=== PATIENT | male | born 1990 | race Caucasian/White ===

== ENCOUNTER 2017-04-15 18:22 | Emergency (ER) | payer SELFPAY ==
[~2017-04-15] VITALS: Ht 172.7 cm; Wt 90.0 kg
[2017-04-15 18:25] VITALS: BP 143/69; PULSE 88; RESP 18; TEMP 98.1; O2SAT 98
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
[2017-04-15] MEDS ORDERED: TETANUS/DIPHTHERIA TOXOID ADULT 0.5 ML VIAL IM ONE (18:45)
[2017-04-15] MEDS ORDERED: LIDOCAINE 1%/EPINEPHrine 1:100,000 SOLN 20 ML VIAL INFIL ONE (18:45)
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
== END 2017-04-15 20:15 | disposition left against medical advice (07) ==
LOC: NEPE 18:22
DX: S01.01XA Laceration without foreign body of scalp, initial encounter (principal); V19.9XXA Pedal cyclist (driver) (passenger) injured in unspecified traffic accident, initial encounter; Y93.55 Activity, bike riding; Z23 Encounter for immunization
CPT/HCPCS: 70450; 70486; 72125; 90471; 90714

== ENCOUNTER 2017-06-19 18:23 | Emergency (ER) | payer OTHER ==
[~2017-06-19] VITALS: Ht 172.7 cm; Wt 90.0 kg
[2017-06-19 18:48] VITALS: BP 163/93; PULSE 93; RESP 18; TEMP 99.9; O2SAT 98
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
[2017-06-19 19:32] LABS: AUTOMATED NEUTROPHIL # 2.8 TH/MM3 (1.8-7.7); BASOPHIL % 0.8 % (0.0-2.0); EOSINOPHIL # 0.1 TH/MM3 (0-0.4); EOSINOPHIL % 1.7 % (0.0-4.0); HEMATOCRIT 44.3 % (39.0-51.0); HEMO FLAGS DIFF FINAL; LYMPH % 43.4 % (9.0-44.0); LYMPHOCYTE # 2.6 TH/MM3 (1.0-4.8); MEAN CELL VOLUME 92.2 FL (80.0-100.0); MEAN CORPUSCULAR HEMOGLOBIN 33.1 PG (27.0-34.0); MEAN CORPUSCULAR HGB CONC 35.9 % (32.0-36.0); MONO % 7.2 % (0.0-8.0); NEUT % 46.9 % (16.0-70.0); PLATELET COUNT 246 TH/MM3 (150-450); RED CELL DISTRIBUTION WIDTH 12.6 % (11.6-17.2); WHITE BLOOD COUNT 5.9 TH/MM3 (4.0-11.0)
[2017-06-19 19:41] LABS: AMPHETAMINE, URINE NEG (NEG); BARBITURATES, URINE NEG (NEG); COCAINE, URINE NEG (NEG)
[2017-06-19 19:56] LABS: ANION GAP 9 MEQ/L (5-15); AST (GOT) 28 U/L (15-37); BICARBONATE 25.1 MEQ/L (21.0-32.0); BLOOD UREA NITROGEN 10 MG/DL (7-18); CHLORIDE 107 MEQ/L (98-107); GLOMERULAR FILTRATION RATE 74 ML/MIN (>89); POTASSIUM 3.6 MEQ/L (3.5-5.1); SODIUM (NA) 141 MEQ/L (136-145)
[2017-06-19 20:00] LABS: ALKALINE PHOSPHATASE 57 U/L (45-117); ALT (GPT) 31 U/L (12-78); TOTAL BILIRUBIN ADULT 0.4 MG/DL (0.2-1.0)
[2017-06-19 20:15] LABS: ACETAMINOPHEN LESS THAN 2.0 MCG/ML (10.0-30.0)
[2017-06-19] MEDS ORDERED: LORazepam 2 MG TAB PO PRN (21:30)
[2017-06-19] MEDS ORDERED: ONDANSETRON ODT 4 MG TAB PO PRN (21:30)
[2017-06-19] MEDS ORDERED: FLUMAZENIL 0.5 MG/5 ML VIAL IV PUSH PRN (21:30)
[2017-06-19] MEDS ORDERED: LORazepam 1 MG TAB PO PRN (21:30)
[2017-06-19] MEDS ORDERED: LORazepam 2 MG/ML VIAL IV PUSH PRN ×4 (21:30)
[2017-06-19 22:40] VITALS: BP 148/85; PULSE 69; RESP 18
== END 2017-06-20 ==
LOC: NEPD 18:23 → NEPJ 06-20
DX: R45.851 Suicidal ideations (principal); F41.9 Anxiety disorder, unspecified; F32.9 Major depressive disorder, single episode, unspecified; Z72.0 Tobacco use; Z88.0 Allergy status to penicillin
CPT/HCPCS: 80053; 80307; 85025; 96374; 99284; J2060

== ENCOUNTER 2018-04-21 16:08 | Inpatient (IN) | payer SELFPAY ==
[~2018-04-21] VITALS: Ht 167.6 cm; Wt 92.4 kg
[2018-04-21 16:23] VITALS: BP 140/82; PULSE 70; RESP 16; O2SAT 99
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
[2018-04-21] MEDS ORDERED: ACETAMINOPHEN/HYDROcodone 325 MG/5 MG TAB PO ONE (16:45)
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
[2018-04-21] MEDS ORDERED: SODIUM CHLOR 0.9% 1000 ML INJ 1,000 ML IV SCH (17:20)
[2018-04-21] MEDS ORDERED: SODIUM CHLORIDE 0.9% FLUSH 10 ML FLUSH IV FLUSH PRN ×2 (17:30→18:45)
--- NOTE | 2018-04-21 18:39 | RADRPT ---
EXAM DATE: 04/21/2018 6:14 PM EDT AGE/SEX: 28 years / Male INDICATIONS: Evaluate for free air. CLINICAL DATA: This is the patient's initial encounter. Patient reports that signs and symptoms have been present for 1 day and indicates a pain score of 0/10. MEDICAL/SURGICAL HISTORY: None. None. COMPARISON: No prior [facility] exams available for comparison. FINDINGS: A single AP upright portable view of the chest demonstrates the lungs to be symmetrically aerated wit hout evidence of mass, infiltrate or effusion. No evidence of pneumothorax. The cardiomediastinal co ntours are unremarkable. Osseous structures are intact. No evidence of free intraperitoneal gas. CONCLUSION: Lungs are clear. No evidence of free air. Electronically signed by: Guero Natarajan MD 04/21/2018 6:38 PM EDT
[2018-04-21] MEDS ORDERED: ACETAMINOPHEN 325 MG TAB PO PRN (18:45)
[2018-04-21] MEDS ORDERED: BISACODYL 10 MG SUPP RECTAL PRN (18:45)
[2018-04-21] MEDS ORDERED: METOCLOPRAMIDE HCL 10 MG/2 ML VIAL IV PUSH PRN (18:45)
[2018-04-21] MEDS ORDERED: SENNOSIDES 8.6 MG TAB PO PRN (18:45)
[2018-04-21] MEDS ORDERED: NALOXONE HCL 0.4 MG/ML AMP IV PUSH PRN (18:45)
[2018-04-21] MEDS ORDERED: MAGNESIUM HYDROXIDE SUSP 30 ML CUP PO PRN (18:45)
[2018-04-21] MEDS ORDERED: ACETAMINOPHEN/HYDROcodone 325 MG/10 MG TAB PO PRN (18:45)
[2018-04-21] MEDS ORDERED: LACTULOSE SYRUP 20 GM/30 ML CUP PO PRN (18:45)
[2018-04-21 18:58] LABS: AUTOMATED NEUTROPHIL # 7.1 TH/MM3 (1.8-7.7); BASOPHIL # 0.1 TH/MM3 (0-0.2); BASOPHIL % 0.7 % (0.0-2.0); EOSINOPHIL # 0.1 TH/MM3 (0-0.4); EOSINOPHIL % 0.8 % (0.0-4.0); HEMATOCRIT 46.1 % (39.0-51.0); LYMPH % 9.7 % (9.0-44.0); LYMPHOCYTE # 0.9 TH/MM3 (1.0-4.8); MEAN CELL VOLUME 95.8 FL (80.0-100.0); MEAN CORPUSCULAR HEMOGLOBIN 31.1 PG (27.0-34.0); MEAN CORPUSCULAR HGB CONC 32.5 % (32.0-36.0); MEAN PLATELET VOLUME 7.5 FL (7.0-11.0); MONO % 9.3 % (0.0-8.0); MONOCYTE # 0.8 TH/MM3 (0-0.9); NEUT % 79.5 % (16.0-70.0); PLATELET COUNT 398 TH/MM3 (150-450); RED BLOOD COUNT 4.81 MIL/MM3 (4.50-5.90); RED CELL DISTRIBUTION WIDTH 14.9 % (11.6-17.2)
[2018-04-21 19:20] LABS: BILIRUBIN, URINE NEG (NEG); BLOOD, URINE NEG (NEG); GLUCOSE,URINE NEG (NEG); HYALINE CAST, URINE 2 /lpf (RARE); KETONE, URINE NEG (NEG); MUCUS URINE FEW /lpf (OCC); NITRITE,URINE NEG (NEG); URINE COLOR YELLOW (YELLW/STRAW); URINE LEUKOCYTE ESTERASE NEG (NEG)
[2018-04-21 19:26] LABS: ALT (GPT) 58 U/L (12-78)
[2018-04-21 19:29] LABS: ALKALINE PHOSPHATASE 46 U/L (45-117); TOTAL BILIRUBIN ADULT 0.3 MG/DL (0.2-1.0); TOTAL PROTEIN 7.1 GM/DL (6.4-8.2)
[2018-04-21 19:30] VITALS: BP 140/82; PULSE 82; RESP 16; O2SAT 98
[2018-04-21 19:33] LABS: ALBUMIN 3.9 GM/DL (3.4-5.0); AST (GOT) 46 U/L (15-37); BICARBONATE 29.8 MEQ/L (21.0-32.0); BLOOD UREA NITROGEN 13 MG/DL (7-18); CALCIUM 9.2 MG/DL (8.5-10.1); CHLORIDE 104 MEQ/L (98-107); CREATININE 1.34 MG/DL (0.60-1.30); GLOMERULAR FILTRATION RATE 63 ML/MIN (>89); GLUCOSE,RANDOM 130 MG/DL (74-106); SODIUM (NA) 140 MEQ/L (136-145)
[2018-04-21 19:50] VITALS: BP 141/85; PULSE 112; RESP 18; TEMP 98.4; O2SAT 94
[2018-04-21] MEDS: SODIUM CHLOR 0.9% 1000 ML INJ 1,000 ML IV SCH ×2 (20:09→21:27)
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
[2018-04-21] MEDS: SODIUM CHLORIDE 0.9% FLUSH 10 ML FLUSH IV FLUSH SCH (21:00)
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
[2018-04-21] MEDS: MORPHINE SULFATE 4 MG/ML INJ IV PUSH PRN (21:25)
[2018-04-21] MEDS: DOCUSATE SODIUM 50 MG/SENNA 8.6 MG TAB PO SCH (21:25)
[2018-04-22] VITALS: BP 133/73; PULSE 85; RESP 20; TEMP 99; O2SAT 98
[2018-04-22] MEDS: MORPHINE SULFATE 4 MG/ML INJ IV PUSH PRN ×4 (00:19→11:55)
[2018-04-22] MEDS ORDERED: METOPROLOL TARTRATE 25 MG TAB PO PRN (03:45)
[2018-04-22] MEDS ORDERED: CHLORHEXIDINE GLUCONATE 2 % 1 PACK (2 CLOTHS) TOPICAL PRN (03:45)
[2018-04-22] MEDS ORDERED: POVIDONE IODINE 5% (ANTISEPSIS KIT) 4 APPLICATIONS EACH NARE PRN (03:45)
[2018-04-22] MEDS ORDERED: SODIUM CHLORID 0.9% 500 ML IV PRN (03:45)
[2018-04-22] MEDS ORDERED: LACTATED RINGER'S 1000 ML IV PRN (03:45)
[2018-04-22 04:05] VITALS: BP 153/64; PULSE 62; RESP 18; TEMP 98.4; O2SAT 97
[2018-04-22 07:15] LABS: AUTOMATED NEUTROPHIL # 7.3 TH/MM3 (1.8-7.7); BASOPHIL % 0.5 % (0.0-2.0); EOSINOPHIL # 0.1 TH/MM3 (0-0.4); EOSINOPHIL % 0.8 % (0.0-4.0); HEMATOCRIT 45.5 % (39.0-51.0); LYMPH % 11.9 % (9.0-44.0); LYMPHOCYTE # 1.1 TH/MM3 (1.0-4.8); MEAN CORPUSCULAR HEMOGLOBIN 31.6 PG (27.0-34.0); MEAN CORPUSCULAR HGB CONC 32.9 % (32.0-36.0); MEAN PLATELET VOLUME 7.7 FL (7.0-11.0); NEUT % 76.8 % (16.0-70.0); PLATELET COUNT 371 TH/MM3 (150-450); RED BLOOD COUNT 4.74 MIL/MM3 (4.50-5.90); RED CELL DISTRIBUTION WIDTH 14.7 % (11.6-17.2); WHITE BLOOD COUNT 9.5 TH/MM3 (4.0-11.0)
[2018-04-22 07:40] LABS: BICARBONATE 26.5 MEQ/L (21.0-32.0); CALCIUM 8.5 MG/DL (8.5-10.1); CREATININE 1.1 MG/DL (0.60-1.30)
[2018-04-22] MEDS: SODIUM CHLOR 0.9% 1000 ML INJ 1,000 ML IV SCH (08:06)
[2018-04-22] MEDS: SODIUM CHLORIDE 0.9% FLUSH 10 ML FLUSH IV FLUSH SCH ×2 (08:13→21:00)
[2018-04-22] MEDS: DOCUSATE SODIUM 50 MG/SENNA 8.6 MG TAB PO SCH ×2 (08:13→19:42)
[2018-04-22 12:00] VITALS: BP 122/65; PULSE 67; RESP 18; TEMP 98.6; O2SAT 99
[2018-04-22] MEDS ORDERED: GENTAMICIN SULFATE 80 MG/2 ML VIAL ONE (14:03)
[2018-04-22] MEDS ORDERED: ceFAZolin INJ 1,000 MG VIAL ONE (14:03)
[2018-04-22] MEDS ORDERED: BUPIVACAINE HCL PF 0.25% 30 ML VIAL ONE (14:05)
[2018-04-22] MEDS ORDERED: HYDROmorphone HCL PF 2 MG/ML VIAL ONE (16:33)
[2018-04-22] MEDS ORDERED: DEXMEDETOMIDINE HCL 200 MCG/2 ML VIAL ONE (16:35)
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
[2018-04-22] MEDS ORDERED: DO NOT ADM ANY ANTICOAGULANT DRUGS PRN (17:23)
[2018-04-22] MEDS ORDERED: MIDAZOLAM HCL 2 MG/2 ML VIAL ONE (17:30)
[2018-04-22] MEDS ORDERED: MORPHINE SULFATE 4 MG/ML INJ ONE (17:30)
--- NOTE | 2018-04-22 17:32 | HHI.PR ---
Immediate Post Op Note Procedure Date: April 22, 2018 Pre Op Diagnosis: First metatarsal fracture left foot Post Op Diagnosis: First metatarsal fracture left foot Surgeon: Ruthy Barnes Gum Rolling Machine Tender(s): None Procedure: Left foot first metatarsal ORIF Findings: None Additional Information: None Complications: None Specimen(s) removed: None Estimated blood loss: 20 cc Anesthesia: General Drains: None Patient to: PACU Patient Condition: Good (Vital signs stable and neurovascular status intact to left foot) Ruthy Barnes DPM April 22, 2018 17:32
[2018-04-22] MEDS ORDERED: Post-op Orders (for Pharmacy) XX ONE (17:45)
[2018-04-22] MEDS ORDERED: diphenhydrAMINE HCL 25 MG CAP PO PRN (17:45)
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
[2018-04-22 19:30] VITALS: BP 122/60; PULSE 71; RESP 18; TEMP 98.5; O2SAT 97
[2018-04-22] MEDS: ACETAMINOPHEN/HYDROcodone 325 MG/5 MG TAB PO PRN ×2 (19:42→23:29)
[2018-04-22] MEDS ORDERED: LIDOCAINE HCL 1% PF 5 ML SYRINGE OTHER ONE (21:10)
[2018-04-22] MEDS ORDERED: ePHEDrine/NS 25 MG/5 ML SYRINGE IV ONE (21:10)
[2018-04-22] MEDS ORDERED: ONDANSETRON HCL 4 MG/2 ML VIAL IV PUSH ONE (21:10)
[2018-04-22] MEDS ORDERED: GLYCOPYRROLATE 1 MG/5 ML SYRINGE IV PUSH ONE (21:10)
[2018-04-22] MEDS ORDERED: DEXAMETHASONE SOD PHOS 4 MG/ML VIAL IV ONE (21:10)
[2018-04-22] MEDS ORDERED: PROPOFOL 200 MG/20 ML AMP IV ONE (21:10)
[2018-04-22] MEDS ORDERED: LACTATED RINGER'S 1000 ML INJ 1,000 ML IV ONE (21:10)
--- NOTE | 2018-04-22 21:46 | RADRPT ---
EXAM DATE: 04/22/2018 8:45 PM EDT AGE/SEX: 28 years / Male INDICATIONS: Open reduction internal fixation of the left foot. CLINICAL DATA: This is the patient's subsequent encounter. Patient reports that signs and symptoms h ave been present for 2 days and indicates a pain score of Nonresponsive. MEDICAL/SURGICAL HISTORY: None. None. COMPARISON: No prior [place] exams available for comparison. FINDINGS: Postsurgical changes following open reduction and internal fixation of midfoot fracture is identified . Anterior plate has been placed from the proximal first metatarsal to the navicular tarsal bone. There appears to be anatomic alignment of the midfoot. CONCLUSION: Satisfactory midfoot alignment following ORIF. Electronically signed by: Marcial Valerio MD 04/22/2018 9:44 PM EDT
[2018-04-22 23:45] VITALS: BP 131/60; PULSE 73; RESP 17; TEMP 98.1; O2SAT 97
[2018-04-23] MEDS: SODIUM CHLOR 0.9% 1000 ML INJ 1,000 ML IV SCH ×3 (01:00→20:43)
[2018-04-23 04:00] VITALS: BP 128/60; PULSE 58; RESP 16; TEMP 98.1; O2SAT 99
[2018-04-23 08:00] VITALS: BP 137/71; PULSE 71; RESP 18; TEMP 98.5; O2SAT 98
[2018-04-23] MEDS: DOCUSATE SODIUM 50 MG/SENNA 8.6 MG TAB PO SCH ×2 (08:06→20:43)
[2018-04-23] MEDS: ACETAMINOPHEN/HYDROcodone 325 MG/5 MG TAB PO PRN ×4 (08:07→20:43)
[2018-04-23] MEDS: SODIUM CHLORIDE 0.9% FLUSH 10 ML FLUSH IV FLUSH SCH ×2 (08:08→20:46)
[2018-04-23] MEDS ORDERED: KETOROLAC TROMETHAMINE 30 MG/ML (IVP) VIAL IV PUSH PRN (10:30)
[2018-04-23 12:00] VITALS: BP 147/69; PULSE 79; RESP 18; TEMP 98.8; O2SAT 98
--- NOTE | 2018-04-23 14:29 | HHI.PR ---
Subjective Remarks Patient seen bedside. Resting comfortably. States pain is well controlled. Denies smoking. Denies numbness tingling to left foot. Objective Vital Signs Date Time Temp Pulse Resp B/P (MAP) Pulse Ox O2 Delivery O2 Flow Rate FiO2 04/23/18 12:00 98.8 79 18 147/69 (95) 98 04/23/18 08:00 98.5 71 18 137/71 (93) 98 04/23/18 08:00 Room Air 04/23/18 04:00 98.1 58 16 128/60 (82) 99 04/22/18 23:45 98.1 73 17 131/60 (83) 97 04/22/18 19:30 98.5 71 18 122/60 (80) 97 04/22/18 18:00 97.6 84 16 140/65 (90) 95 Room Air 04/22/18 17:45 63 14 128/58 (81) 100 04/22/18 17:30 64 16 128/55 (79) 100 04/22/18 17:20 97.6 69 12 122/59 (80) 100 Simple Mask 6 I/O 04/22/18 04/22/18 04/22/18 04/23/18 04/23/18 04/23/18 07:00 15:00 23:00 07:00 15:00 23:00 Intake Total 200 ml 1800 ml 720 ml Output Total 1500 ml 20 ml Balance -1300 ml 1780 ml 720 ml Intake Oral 200 ml 720 ml Other 1800 ml Output Urine Total 1500 ml Estimated Blood Loss 20 ml # Voids 1 2 # Bowel Movements 0 0 Result Diagram: 04/22/18 0549 04/22/18 0549 Imaging Last Impressions Foot X-Ray 04/22/18 0000 Signed Impressions: CONCLUSION: Satisfactory midfoot alignment following ORIF. Chest X-Ray 04/21/18 1720 Signed Impressions: CONCLUSION: Lungs are clear. No evidence of free air. Objective Remarks Posterior splint clean dry and intact with no strikethrough. Active passive dorsiflexion digits 1 through 5 left foot. No reported change in sensation. Medications and IVs Current Medications Medications (Trade) Dose Ordered Sig/Tanesha Route Start Time Stop Time Status Last Admin Sodium Chloride 1,000 ml @ 100 mls/hr Q10H IV 04/21/18 19:00 04/22/18 08:06 (NS Flush) 2 ml UNSCH PRN IV FLUSH 04/21/18 18:45 (NS Flush) 2 ml BID IV FLUSH 04/21/18 21:00 04/23/18 08:08 (Reglan Inj) 5 mg Q6H PRN IV PUSH 04/21/18 18:45 (Tylenol) 650 mg Q6H PRN PO 04/21/18 18:45 ([place] 5-325 Mg) 1 tab Q4H PRN PO 04/21/18 18:45 04/23/18 12:15 (Morphine Inj) 2 mg Q4H PRN IV PUSH 04/21/18 19:00 04/22/18 11:55 (Narcan Inj) 0.4 mg UNSCH PRN IV PUSH 04/21/18 18:45 (Yuliya-Colace) 1 tab BID PO 04/21/18 21:00 04/23/18 08:06 (Milk Of Magnesia Liq) 30 ml Q12H PRN PO 04/21/18 18:45 (Senokot) 17.2 mg Q12H PRN PO 04/21/18 18:45 (Dulcolax Supp) 10 mg DAILY PRN RECTAL 04/21/18 18:45 (Lactulose Liq) 30 ml DAILY PRN PO 04/21/18 18:45 Lactated Ringer's 1,000 ml @ 30 mls/hr Q24H PRN IV 04/22/18 03:45 04/25/18 03:44 04/22/18 05:31 Sodium Chloride 500 ml @ 30 mls/hr [id number] PRN IV 04/22/18 03:45 04/25/18 03:44 (Lopressor) 25 mg ASSEMBLER BODY PRN PO 04/22/18 03:45 04/25/18 03:44 (Betadine 5% Antisepsis Kit) 1 applic ASSEMBLER BODY PRN EACH NARE 04/22/18 03:45 04/25/18 03:44 (Chlorhexidine 2% Cloth) 3 pack ASSEMBLER BODY PRN TOPICAL 04/22/18 03:45 04/25/18 03:44 ([facility] [place] [facility]) ALL NURSING DEPARTME... UNSCH PRN .XX 04/22/18 17:23 04/23/18 17:22 (Lovenox Inj) 30 mg Q24H SQ 04/23/18 14:00 (Benadryl) 25 mg Q6H PRN PO 04/22/18 17:45 (Toradol Inj) 15 mg Q6H PRN IV PUSH 04/23/18 10:30 04/28/18 10:29 Assessment and Plan Assessment and Plan 28-year-old male with left first metatarsal fracture s/p 1 day left first metatarsal ORIF Patient examined and evaluated with all questions answer Patient is to remain nonweightbearing in posterior splint Will take down dressing and evaluate prior to discharge Patient to follow up in 1 week of discharge TuesdayApril 30 Anticipate DC day 2 postop Ruthy Barnes DPM April 23, 2018 14:29
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
[2018-04-23 16:00] VITALS: BP 148/66; PULSE 77; RESP 18; TEMP 99.8; O2SAT 98
[2018-04-23] MEDS: ENOXAPARIN SODIUM 30 MG/0.3 ML SYRINGE SQ SCH (16:26)
[2018-04-23 20:00] VITALS: BP 139/62; PULSE 68; RESP 19; TEMP 98.7; O2SAT 99
[2018-04-24] VITALS: BP 121/72; PULSE 64; RESP 16; TEMP 98.2; O2SAT 98
[2018-04-24] MEDS: ACETAMINOPHEN/HYDROcodone 325 MG/5 MG TAB PO PRN ×5 (00:39→18:27)
[2018-04-24] MEDS: SODIUM CHLOR 0.9% 1000 ML INJ 1,000 ML IV SCH ×2 (07:00→17:00)
[2018-04-24 08:00] VITALS: BP 133/68; PULSE 60; RESP 16; TEMP 98.6; O2SAT 97
[2018-04-24] MEDS: SODIUM CHLORIDE 0.9% FLUSH 10 ML FLUSH IV FLUSH SCH (09:00)
[2018-04-24] MEDS: DOCUSATE SODIUM 50 MG/SENNA 8.6 MG TAB PO SCH (09:36)
[2018-04-24 12:00] VITALS: BP 132/63; PULSE 61; RESP 16; TEMP 98.5; O2SAT 97
[2018-04-24] MEDS ORDERED: HYDR-3516 PO (13:32)
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
[2018-04-24] MEDS: ENOXAPARIN SODIUM 30 MG/0.3 ML SYRINGE SQ SCH (14:15)
[2018-04-24] MEDS ORDERED: ENOX30P SQ (15:07)
--- NOTE | 2018-04-24 18:45 | PD.POD ---
Subjective Podiatric Problems Status post left foot ORIF 1st metatarsal, Dr Barnes Past Med/Surg/Social History Social History Smoking Status: Current Some Day Smoker Objective Vital Signs Vital Signs Date Time Temp Pulse Resp B/P (MAP) Pulse Ox O2 Delivery O2 Flow Rate FiO2 04/24/18 12:00 98.5 61 16 132/63 (86) 97 04/24/18 08:00 98.6 60 16 133/68 (89) 97 04/24/18 00:00 98.2 64 16 121/72 (88) 98 04/23/18 20:00 98.7 68 19 139/62 (87) 99 04/23/18 20:00 99 Room Air Coded Allergies: penicillin G (Verified Allergy, Severe, Anaphylaxis, 04/21/18) Objective Remarks Left foot with pin percutaneously at dorsal midfoot with nylon sutures intact. No active drainage present. Mild edema. Compartments soft. Neurovascularly intact left foot. Capillary refill intact to digits. Assessment & Plan A/P Status post Left ORIF 1st metatarsal fracture, Dr Barnes 04/22/18 Changed bandage today Nonweightbearing left foot in splint Follow up in 1 week for dressing change with Dr Barnes in office Keep clean, dry, intact until then Ok with discharge home Needs DVT prophylaxis upon discharge per primary team Eleazar Izaguirre DPM April 24, 2018 18:45
[2018-04-24 20:00] VITALS: BP 140/65; PULSE 86; RESP 18; TEMP 99.7; O2SAT 97
== END 2018-04-24 21:11 | disposition home or self-care (01) | DRG 505 ==
LOC: NEPD 16:08 → NEDA 18:12 → OBSVTOIN 18:38 → N06B 20:27
PROVIDERS: ADMIT Family Medicine; ATTEND Family Medicine
PROC: 0QSP04Z Reposition Left Metatarsal with Internal Fixation Device, Open Approach (ICD-10-PCS; principal; 2018-04-22 14:39)
DX: S92.312A Displaced fracture of first metatarsal bone, left foot, initial encounter for closed fracture (principal); F17.220 Nicotine dependence, chewing tobacco, uncomplicated; N28.9 Disorder of kidney and ureter, unspecified; Z88.0 Allergy status to penicillin; Y93.55 Activity, bike riding; V13.4XXA Pedal cycle driver injured in collision with car, pick-up truck or van in traffic accident, initial encounter
CPT/HCPCS: 71045; 73620; 73630; 76000; 80048; 80053; 81001; 85025; 94150; C1713; J0690; J1100; J1170; J1580; J1650; J1885; J2250; J2270; J2405; J3010; J7030; J7120

== ENCOUNTER → 2018-05-02 | Outpatient (CLI) | payer SELFPAY ==
[~2018-05-02] MED LIST: ENOX30P SQ; HYDR-3516 PO
--- NOTE | 2018-05-02 12:43 | RADRPT ---
EXAM DATE: 05/02/2018 12:17 PM EDT AGE/SEX: 28 years / Male INDICATIONS: Pain and swelling left foot post surgical repair of 1st metatarsal of left foot CLINICAL DATA: This is the patient's subsequent encounter. Patient reports that signs and symptoms h ave been present for 1 week and indicates a pain score of 10/10. MEDICAL/SURGICAL HISTORY: . fracture left foot, 1st metatarsal . surgical repair left foot, 1s t metatarsal [place]PAR[place] [facility] [place] (2VWS[place] 04/22/2018. . FINDINGS: The patient is in a cast. There is a surgical plate along the medial aspect of the medial cuneiform b one and the proximal aspect of the first metatarsal. There is fracturing through the base of the firs t metatarsal. There is a screw extending from the medial cuneiform bone into the base of the second m etatarsal. There is a wire that appears to extend through the second and first proximal metatarsals. The hardware appears well placed. Other than the fracture deformity of the proximal first metatarsal no other fracture is seen. The bones and joints are normally aligned. CONCLUSION: Successful ORIF. An acute abnormality is not clearly identified. Electronically signed by: Fer العراقي MD 05/02/2018 12:41 PM EDT
== END ==
LOC: HRAD 11:41
PROVIDERS: ATTEND Podiatrist Foot & Ankle Surgery
DX: S92.312A Displaced fracture of first metatarsal bone, left foot, initial encounter for closed fracture (principal); X58.XXXA Exposure to other specified factors, initial encounter
CPT/HCPCS: 73630